=== PATIENT | male | born 1970 | race Caucasian/White ===

== ENCOUNTER 2019-02-21 19:20 | Emergency (ER) | payer BC ==
[2019-02-21 19:26] VITALS: BMI 25.7
[2019-02-21] MEDS ORDERED: SODIUM CHLORIDE 0.9% 1000 ML INFUS.BAG IV ONE (19:39)
[2019-02-21] MEDS ORDERED: LORazepam 2 MG/ML SDV VIAL ONE (19:52)
[2019-02-21 20:00] LABS: EOS % 0.8 % (0-4.5); HEMATOCRIT 42.9 % (35.4-49); HEMOGLOBIN 14.2 GM/dl (11.7-16.9); LYMPH % 27.1 % (8-40); MCH 31.4 pg (25.7-33.7); MEAN CELL VOLUME 95.1 fl (80-96); MEAN PLT VOLUME 8.9 fl (7.5-11.1); MONO % 8.8 % (3.8-10.2); NEUT % 62.3 % (42.8-82.8); PLATELET COUNT 207 K/MM3 (134-434); RBC 4.51 M/mm3 (4.00-5.60); RDW 11.9 % (11.9-15.9)
[2019-02-21 20:15] LABS: ALBUMIN 4.2 g/dl (3.4-5.0); BILIRUBIN,TOTAL 2.1 mg/dl (0.2-1); CALCIUM 9.1 mg/dl (8.5-10); POTASSIUM 3.5 mmol/L (3.5-5.1); TOT PROT 6.8 g/dl (6.4-8.2)
--- NOTE | 2019-02-21 20:48 | PDOC ---
Documentation entered by Rosalie Harkins SCRIBE, acting as scribe for April Stone MD. April Stone MD: This documentation has been prepared by the Torin storey Adrianna, SCRIBE, under my direction and personally reviewed by me in its entirety. I confirm that the documentation accurately reflects all work, treatment, procedures, and medical decision making performed by me. History of Present Illness - General Chief Complaint: Syncope/Near Syncope Stated Complaint: SYNCOPE, "I FEEL STRESSED OUT" Time Seen by Provider: 02/21/19 19:24 - History of Present Illness Initial Comments: 48 Y M, PMH of panic attacks, vertigo, and tinnitus, presents with panic attack , SOB, and syncopal episode. Patient notes he has been more stressed lately because of work, money, and bills, which has led to an increase in the amount of panic attacks he has been having. He additionally reports chest discomfort and SOB for the past few months, noting he feels like he cannot get a deep breath in and stops breathing when he sleeps (has not yet been tested for sleep apnea). Today on the train ride home, patient notes he did not feel well. He drank some water, and shortly after he felt gas under his ribs and burped. While in the ED, patient syncopized to the floor. He notes he felt tingly all over and dizzy from his anxiety, and consequently passed out. Patient has not been evaluated by a psychiatrist at this time for his panic attacks. Allergies: Caffeine, NKDA Surgical History: None reported Social History: Marijuana use (last was 3 days ago). Social EtOH use. Former tobacco use (quit >20 years ago). Denies illicit drug use PCP: Dr. Menard Past History - Past Medical History Allergies/Adverse Reactions: Allergies Allergy/AdvReac Type Severity Reaction Status Date / Time No Known Drug Allergies Allergy Verified 02/21/19 19:24 caffeine AdvReac Verified 02/21/19 19:24 Home Medications: Ambulatory Orders NK [No Known Home Medication] 06/14/14 COPD: No Psychiatric Problems: Yes (PANIC ATTACKS) Other medical history: VERTIGO, TINNITUS - Psycho Social/Smoking Cessation Hx Smoking History: Never smoked Have you smoked in the past 12 months: No Information on smoking cessation initiated: No Hx Alcohol Use: No Substance Use Type: None Review of Systems - Review of Systems Comments:: GENERAL/CONSTITUTIONAL: +Stressed. No fever or chills. No weakness. HEAD, EYES, EARS, NOSE AND THROAT: No change in vision. No ear pain or discharge. No sore throat. CARDIOVASCULAR: +Chest discomfort. +SOB. RESPIRATORY: No cough, wheezing, or hemoptysis. GASTROINTESTINAL: No nausea, vomiting, diarrhea or constipation. GENITOURINARY: No dysuria, frequency, or change in urination. MUSCULOSKELETAL: No joint or muscle swelling or pain. No neck or back pain. SKIN: No rash NEUROLOGIC: +Tingly all over. +Dizzy. +S/p syncope. No headache, or change in strength/sensation. ENDOCRINE: No increased thirst. No abnormal weight change. HEMATOLOGIC/LYMPHATIC: No anemia, easy bleeding, or history of blood clots. ALLERGIC/IMMUNOLOGIC: No hives or skin allergy. *Physical Exam - Vital Signs Last Vital Signs Temp Pulse Resp BP Pulse Ox 98.2 F 83 18 120/68 100 02/21/19 19:20 02/21/19 19:20 02/21/19 19:20 02/21/19 19:20 02/21/19 19:20 - Physical Exam GENERAL: Awake, alert, and fully oriented, in no acute distress. Anxious appearing. HEAD: No signs of trauma EYES: PERRLA, EOMI, sclera anicteric, conjunctiva clear ENT: Moist mucosa NECK: Normal ROM, supple,no c spine tenderness LUNGS: Breath sounds equal, clear to auscultation bilaterally. No wheezes, and no crackles HEART: Regular rate and rhythm, normal S1 and S2, no murmurs, rubs or gallops ABDOMEN: Soft, nontender, normoactive bowel sounds. No guarding, no rebound. No masses EXTREMITIES: Normal range of motion, no edema. No erythema or tenderness. DP/PT pulses 2+ and symmetric. Warm and well perfused. NEUROLOGICAL: Moves all extremities. Normal speech, normal gait SKIN: Warm, Dry, normal turgor, no rashes or lesions noted. 02/21/19 20:44 Heart Score/ECG Review #1 General ECG Interpretation: Sinus Rhythm, Normal Rate (78), Normal Intervals, No acute ischemic changes ED Treatment Course - LABORATORY CBC & Chemistry Diagram: 02/21/19 19:45 02/21/19 19:45 - ADDITIONAL ORDERS Additional order review: Laboratory Results 02/21/19 02/21/19 02/21/19 21:00 21:00 19:45 Sodium Potassium Chloride Carbon Dioxide Anion Gap BUN Creatinine Est GFR (CKD-EPI)AfAm Est GFR (CKD-EPI)NonAf Random Glucose Calcium Total Bilirubin AST ALT Alkaline Phosphatase Troponin I < 0.03 Total Protein Albumin TSH Urine Color Yellow Urine Appearance Clear Urine pH 8.0 Urine Protein Negative Urine Glucose (UA) Negative Urine Ketones Negative Urine Blood Negative Urine Nitrite Negative Urine Bilirubin Negative Urine Urobilinogen 0.2 Ur Leukocyte Esterase Negative Opiates Screen Negative Methadone Screen Negative Barbiturate Screen Negative Phencyclidine Screen Negative Ur Amphetamines Screen Negative MDMA (Ecstasy) Screen Negative Benzodiazepines Screen Negative Cocaine Screen Negative U Marijuana (THC) Screen Negative 02/21/19 19:45 Sodium 131 L Potassium 3.5 Chloride 101 Carbon Dioxide 20 L Anion Gap 10 BUN 25.0 H Creatinine 1.0 Est GFR (CKD-EPI)AfAm 101.26 Est GFR (CKD-EPI)NonAf 87.37 Random Glucose 93 Calcium 9.1 Total Bilirubin 2.1 H AST 31 ALT 26 Alkaline Phosphatase 37 L Troponin I Total Protein 6.8 Albumin 4.2 TSH 3.03 Urine Color Urine Appearance Urine pH Urine Protein Urine Glucose (UA) Urine Ketones Urine Blood Urine Nitrite Urine Bilirubin Urine Urobilinogen Ur Leukocyte Esterase Opiates Screen Methadone Screen Barbiturate Screen Phencyclidine Screen Ur Amphetamines Screen MDMA (Ecstasy) Screen Benzodiazepines Screen Cocaine Screen U Marijuana (THC) Screen 02/21/19 19:45 RBC 4.51 MCV 95.1 MCHC 33.0 RDW 11.9 MPV 8.9 Neutrophils % 62.3 Lymphocytes % 27.1 Monocytes % 8.8 Eosinophils % 0.8 Basophils % 1.0 - RADIOLOGY Radiology Studies Ordered: Category Date Time Status HEAD CT WITHOUT CONTRAST [CT] Stat CT Scan 02/21/19 20:44 Completed CHEST X-RAY PORTABLE* [RAD] Stat Radiology 02/21/19 19:39 Taken - Medications Given in the ED: ED Medications Discontinued Medications Generic Name Dose Route Start Last Admin Trade Name Freq PRN Reason Stop Dose Admin Lorazepam 1 mg 02/21/19 19:39 02/21/19 19:58 Ativan Injection - IVPUSH 02/21/19 19:40 1 mg ONCE ONE Administration Sodium Chloride 1,000 ml 02/21/19 19:39 02/21/19 19:58 Normal Saline - IV 02/21/19 19:40 1,000 ml ONCE ONE Administration Medical Decision Making - Medical Decision Making 02/21/19 20:45 This is back over the [place]'s visit come back today he asked that she will have to wait for collarbone and what is butterfly it 48-year-old male history of previous Mnire's disease also severe anxiety with frequent panic attacks here today states is been having increasing number of panic attacks recently. Patient states that he has been having very often due to increased stress. When it happens he gets racing heartbeats feels a tingling sensation he also also had syncope in the past denies any recent alcohol use denies any drug use has been taking [id number] supplement has not seen a psychiatrist. 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 Patient states he was feeling tingly all over just prior to his syncope. Denies any chest pain has seen his doctor 5 times over the last several months for this very complaint. Also describes a feeling that he cannot get a full breath and states that he has a regular pattern of breathing when he is sleeping. Patient states that he has been referred for sleep study but has not followed up yet this is been going on for several months. My exam patient is awake alert head appears to be atraumatic no cervical spine tenderness lungs are clear heart is regular abdomen soft nontender neurologically he is awake and alert. Patient appears very anxious with pressured speech but skin is warm and dry he is directable Differential includes anxiety attack, leg electrolyte abnormality, dysrhythmia, toxic causes, dehydration. Plan CT head to rule out trauma as the patient did hit his head while he syncopized in the ED. Chest x-ray EKG basic labs IV hydration patient will be given an anxiolytic of Ativan. Pending his work-up will likely be discharged home with referral for psychiatry and pulmonology just for a sleep study 02/21/19 23:[address] is ngeative. will dc home. recommend psych and pulmonary ful pcp fu Discharge - Discharge Information Problems reviewed: Yes Clinical Impression/Diagnosis: Panic attack, Syncope Condition: Improved Disposition: HOME - Admission No - Follow up/Referral Referrals: Francisco Liu MD [Staff Physician] - Logan Moralez MD [Staff Physician] - - Patient Discharge Instructions Patient Printed Discharge Instructions: DI for Syncope in Adults (Fainting), Panic Disorder Additional Instructions: you should follow up wtih your primary doctor. you can also follow up with a spool fixer. see referral information for Dr Moralez. call to schedule. you should also follow up with a psychiatrist call your insurance to seek listing of provider. you can try DR Browning . you can also follow up with a psychologist. return for any problesm or concerns. your head cT , Chest xray and labs were normal. except a mildly low sodium. you should be sure to drink fluid with electrolytes . return for any problems or concerns. - Post Discharge Activity
[2019-02-21 22:24] LABS: COCAINE, UR NEGATIVE ng/ml (CUTOFF=300); METHADONE, UR NEGATIVE ng/ml (CUTOFF=300); OPIATES, URI NEGATIVE ng/ml (CUTOFF=300); PHENCYCLIDINE,URINE NEGATIVE ng/ml (CUTOFF=25); URINE AMPHETAMINES NEGATIVE ng/ml (CUTOFF=500); URINE BARBITURATES NEGATIVE ng/ml (CUTOFF=200); URINE BENZODIAZEPINES NEGATIVE ng/ml (CUTOFF=200)
[2019-02-22 10:22] VITALS: BP 121/65; PULSE 78; TEMP 98.1
--- NOTE | 2019-02-22 23:25 | EKG ---
Test Reason : Blood Pressure : / mmHG Vent. Rate : 078 BPM Atrial Rate : 078 BPM P-R Int : 132 ms QRS Dur : 086 ms QT Int : 394 ms P-R-T Axes : 072 075 044 degrees QTc Int : 449 ms NORMAL SINUS RHYTHM WITH SINUS ARRHYTHMIA NORMAL ECG NO PREVIOUS ECGS AVAILABLE Confirmed by YOVANA DE LA CRUZ MD ([id number]) on 02/22/2019 11:24:42 PM Referred By: DR OKEEFE Confirmed By:YOVANA DE LA CRUZ MD
== END 2019-02-21 23:12 | disposition home or self-care (01) ==
LOC: FER 19:20
PROC: 3E033GC Introduction of Other Therapeutic Substance into Peripheral Vein, Percutaneous Approach (ICD-10-PCS; principal; 2019-02-21)
PROC: 3E0337Z Introduction of Electrolytic and Water Balance Substance into Peripheral Vein, Percutaneous Approach (ICD-10-PCS; 2019-02-21)
DX: F41.0 Panic disorder [episodic paroxysmal anxiety] (principal); R55 Syncope and collapse; H93.19 Tinnitus, unspecified ear; Z91.018 Allergy to other foods
CPT/HCPCS: 36415; 70450-TC; 71045-TC-FY; 80053; 80307; 81003; 84443; 84484; 85025; 93005; 99285-25; J7030

== ENCOUNTER 2019-03-31 02:30 | Emergency (ER) | payer BC ==
[2019-03-31] MEDS ORDERED: SODIUM CHLORIDE 1,000 ML IV ONE (02:36)
[2019-03-31] MEDS ORDERED: KETOROLAC TROMETHAMINE 30 MG/1 ML VIAL IVPUSH ONE (02:36)
[2019-03-31 02:37] VITALS: BP 130/79; PULSE 70; TEMP 98.1; BMI 25.7
--- NOTE | 2019-03-31 02:41 | PDOC ---
History of Present Illness - General Chief Complaint: Pain, Acute Stated Complaint: RIGHT FLANK PAIN ON AND OFF SINCE SUNDAY Time Seen by Provider: 03/31/19 02:35 History Source: Patient Exam Limitations: No Limitations - History of Present Illness Initial Comments: 03/31/19 02:39 This is a 48-year-old male who comes in complaining of right flank pain. Patient said he has had right flank intermittently times a few weeks. Patient said worse tonight with some associated nausea. Patient denies any radiation around to the front at this time. Patient does have a history of a kidney stone many years in the past that was in his kidney but never did however kidney stone was on the right side not the left. Patient otherwise denies any fevers or chills. Allergies: as per nursing notes Past Medical History: none Social history: Lives with family. No smoking. No alcohol. No illicit drugs. Surgical history: None General: No fevers or chills, no weakness, no weight loss HEENT: No change in vision. No sore throat,. No ear pain CardioVascular: no chest discomfort. No shortness of breath Respiratory:No cough, or wheezing. Gastrointestinal: no nausea, vomiting, diarrhea or constipation, No rectal bleeding + right flank pain Genitourinary: No dysuria, hematuria, or frequency Musculoskeletal: No joint or muscle pain or swelling Neurologic: No headache, vertigo, dizziness or loss of consciousness Psychiatric: nor depression Skin: No rashes or easy bruising Endocrine: no increased thirst or abnormal weight change Allergic: no skin or latex allergy All other systems reviewed and normal Exam: General: Well-nourished well-developed individual, no acute distress HEENT: Throat: Normal, tonsils normal, no erythema or exudate Neck: Supple, no meningeal signs, no lymphadenopathy Eyes::Pupils equal reactive and round, extraocular motion intact Chest: Nontender to palpation Cardiac: S1-S2 normal, regular rate and rhythm, no murmurs rubs or gallops Respiratory: Lungs clear to auscultation bilateral Abdomen: Soft, nondistended, normal bowel sounds, there is no tenderness on palpation diffusely Back/Flank: There is tenderness on palpation of the backslash flank area on the right mid back. There is no CVA tenderness. Extremities: Warm, dry, no cyanosis, clubbing, or edema Skin: No rashes Neuro: Alert and oriented x3, CN II - XII intact, nonfocal exam with normal strength, normal sensation, normal reflexes, normal gait, Psych: Normal mood and affect Assessment and plan: This is a 48-year-old male who comes in complaining of right flank pain. Patient had a work-up including CBC, comp, UA and spiral CT. Patient's work-up was negative for any acute pathology including negative for any renal colic. Patient discharged home and will follow-up with his primary care doctor Past History - Past Medical History Allergies/Adverse Reactions: Allergies Allergy/AdvReac Type Severity Reaction Status Date / Time No Known Drug Allergies Allergy Verified 03/31/19 02:31 caffeine AdvReac Verified 03/31/19 02:33 Home Medications: Ambulatory Orders Cyclobenzaprine HCl [Flexeril 10 mg] 10 mg PO DAILY #14 tablet 03/31/19 COPD: No Psychiatric Problems: Yes (PANIC ATTACKS) - Psycho Social/Smoking Cessation Hx Smoking History: Never smoked Have you smoked in the past 12 months: No Hx Alcohol Use: No Substance Use Type: None ED Treatment Course - LABORATORY CBC & Chemistry Diagram: 03/31/19 02:50 03/31/19 02:50 Discharge - Discharge Information Problems reviewed: Yes Clinical Impression/Diagnosis: Rt flank pain Condition: Stable Disposition: HOME - Admission No - Additional Discharge Information Prescriptions: Cyclobenzaprine HCl [Flexeril 10 mg] 10 mg PO DAILY #14 tablet - Follow up/Referral - Patient Discharge Instructions Additional Instructions: For the pain take ibuprofen 3 tablets 3 times a day with food or naproxen 2 tablets twice a day with food in addition that you can also take Tylenol. Take Flexeril 1 tablet before bed as it will make you drowsy so try to limit it to before bed. Return to the emergency department immediately with ANY new, persistent or worsening symptoms. Continue any medications as previously prescribed by your physician. You should follow up with your primary doctor as soon as possible regarding today's emergency department visit. . Please make sure your doctor reviews the results of your emergency evaluation. Thank you for coming to the Emergency Department today for your care. It was a pleasure to see you today. Please note that your evaluation is INCOMPLETE until you follow-up with your doctor. - Post Discharge Activity
[2019-03-31] MEDS ORDERED: KETOROLAC TROMETHAMINE 30 MG/1 ML VIAL ONE (02:42)
[2019-03-31 03:25] LABS: BASO % 0.6 % (0-2.0); EOS % 1.8 % (0-4.5); HEMATOCRIT 40.5 % (35.4-49); HEMOGLOBIN 13.8 GM/dL (11.7-16.9); LYMPH % 36.6 % (8-40); MCHC 34.1 g/dl (32.0-35.9); MEAN CELL VOLUME 93.9 fl (80-96); MONO % 11.4 % (3.8-10.2); NEUT % 49.6 % (42.8-82.8); PLATELET COUNT 181 K/MM3 (134-434); RBC 4.32 M/mm3 (4.00-5.60); RDW 12.1 % (11.9-15.9); WHITE BLOOD COUNT 6.2 K/mm3 (4.0-10.0)
[2019-03-31 03:59] LABS: ALBUMIN 3.8 g/dl (3.4-5.0); BILIRUBIN,TOTAL 0.9 mg/dL (0.2-1); BLOOD UREA NITROGEN 22.5 mg/dL (7-18); CALCIUM 8.7 mg/dL (8.5-10.1); CREATININE 1.1 mg/dL (0.55-1.3); POTASSIUM 3.9 mmol/L (3.5-5.1); TOT PROT 6.7 g/dl (6.4-8.2)
[2019-03-31 04:10] LABS: URINE APPEARANCE CLEAR; URINE COLOR YELLOW; URINE GLUCOSE (UA) NEGATIVE (NEGATIVE)
[2019-03-31 04:11] LABS: PH,URINE 5.5 (5.0-8.0); URINE BILIRUBIN NEGATIVE (NEGATIVE); URINE KETONE NEGATIVE (NEGATIVE)
[2019-03-31 04:12] LABS: URINE LEUK ESTERASE NEGATIVE (NEGATIVE); URINE NITRITE NEGATIVE (NEGATIVE); URINE PROTEIN NEGATIVE (NEGATIVE); URINE UROBILINOGEN 0.2 mg/dL (0.2-1.0)
== END 2019-03-31 03:30 | disposition home or self-care (01) ==
LOC: FER 02:30
DX: R10.32 Left lower quadrant pain (principal); F41.0 Panic disorder [episodic paroxysmal anxiety]
CPT/HCPCS: 36415; 74176-TC; 80053; 81003; 85025; 87086; 99285-25; J7030

== ENCOUNTER 2021-03-16 12:55 | Emergency (ER) | payer BC ==
[2021-03-16] MEDS ORDERED: SODIUM CHLORIDE 0.9% 500 ML INFUS.BAG IV ONE (13:08)
[2021-03-16] MEDS ORDERED: MECLIZINE HCL 25 MG TABLET (FP) PO ONE (13:08)
[2021-03-16 13:10] VITALS: TEMP 98.7; BMI 24.1
[2021-03-16] MEDS ORDERED: ALPRAZolam 1 MG TABLET PO PRN (13:11)
[2021-03-16] MEDS ORDERED: ALPRAZolam 0.25 MG TABLET ONE (13:25)
[2021-03-16] MEDS ORDERED: MECLIZINE HCL 25 MG TABLET (FP) ONE (13:25)
[2021-03-16 13:48] LABS: ALBUMIN 4.1 g/dl (3.4-5.0); BILIRUBIN,TOTAL 1.4 mg/dl (0.2-1); CALCIUM 9.6 mg/dl (8.5-10); TOT PROT 7.1 g/dl (6.4-8.2)
[2021-03-16 16:37] LABS: BASO % 0.7 % (0-2.0); EOS % 0.8 % (0-4.5); HEMATOCRIT 44.8 % (35.4-49); HEMOGLOBIN 15.3 GM/dL (11.7-16.9); LYMPH % 24.4 % (8-40); MCH 31.5 pg (25.7-33.7); MCHC 34.1 g/dl (32.0-35.9); MEAN CELL VOLUME 92.5 fl (80-96); MEAN PLT VOLUME 9.6 fl (7.5-11.1); NEUT % 62.1 % (42.8-82.8); PLATELET COUNT 201 10^3/uL (134-434); RBC 4.85 M/mm3 (4.00-5.60); RDW 12.3 % (11.9-15.9); WHITE BLOOD COUNT 5.1 K/mm3 (4.0-10.0)
[2021-03-16 17:00] VITALS: BP 118/79; PULSE 74
== END 2021-03-16 19:15 | disposition home or self-care (01) ==
LOC: FER 12:55
DX: R42 Dizziness and giddiness (principal)
CPT/HCPCS: 36415; 70496-TC; 70498-TC; 80053; 81003; 85025; 93005; 99285-25; Q9967

== ENCOUNTER 2022-07-06 07:35 | Day surgery (SDC) | payer BC ==
[2022-07-05 13:14] VITALS: BMI 25.7
[2022-07-06 09:33] VITALS: PULSE 87; TEMP 97.8
[2022-07-06 09:37] VITALS: BP 101/67; RESP 20
== END 2022-07-06 09:55 | disposition home or self-care (01) ==
LOC: FASU-ENDO 07:35
PROVIDERS: ATTEND Internal Medicine Gastroenterology
PROC: 0DJD8ZZ Inspection of Lower Intestinal Tract, Via Natural or Artificial Opening Endoscopic (ICD-10-PCS; principal; 2022-07-06 08:55)
DX: Z12.11 Encounter for screening for malignant neoplasm of colon (principal); K57.30 Diverticulosis of large intestine without perforation or abscess without bleeding; Z83.71 Family history of colonic polyps